=== PATIENT | male | born 1970 | race Two or more races ===

== ENCOUNTER 2018-06-12 12:34 | Emergency (ER) | payer SELFPAY ==
[~2018-06-12] VITALS: Ht 175.3 cm; Wt 88.9 kg
[2018-06-12 13:00] VITALS: BP 168/111
== END 2018-06-12 13:06 | disposition left against medical advice (07) ==
LOC: ER 12:34
DX: R10.9 Unspecified abdominal pain (principal); Z53.21 Procedure and treatment not carried out due to patient leaving prior to being seen by health care provider

== ENCOUNTER → 2020-09-28 | Outpatient (CLI) | payer OTHER ==
--- NOTE | 2020-09-28 12:07 | KCIC ---
XR CHEST 1V Clinical Indication: Reason: TUBERCULOSIS CASE FOLLOW UP / TB FOLLOW UP / Comparison: None. Findings: Atherosclerotic aortic arch. The cardiomediastinal silhouette is normal. There is linear opacity of t he peripheral left upper lung. Lungs are otherwise clear. There is no pneumothorax. No pleural effusi on is appreciated. No acute bone abnormality. IMPRESSION: Linear airspace opacity in the peripheral left upper lung may be discoid atelectasis or scarring. Electronically signed by: Sanju Joel MD (09/28/2020 12:04 PM) [facility]
== END ==
LOC: KCIC 09:59
PROVIDERS: ATTEND Family Medicine
DX: A15.9 Respiratory tuberculosis unspecified (principal); I70.0 Atherosclerosis of aorta
CPT/HCPCS: 71045